=== PATIENT | female | born 1990 | race Caucasian/White ===

== ENCOUNTER 2019-10-11 03:07 | Emergency (ER) | payer OTHER, SELFPAY ==
[2019-10-11 03:12] VITALS: BP 136/87; PULSE 105; RESP 20; TEMP 36.7; O2SAT 100
--- NOTE | 2019-10-11 04:00 | ED.FEMALEGU ---
HPI - Female Genitourinary General Chief complaint: FIELD REPORTER Stated complaint: + PREG TEST Time Seen by Provider: 10/11/19 03:39 Source: patient Mode of arrival: ambulatory Limitations: no limitations History of Present Illness HPI Narrative: Patient is a 29-year-old female who presents to the emergency department with complaint of lower abdominal pain that she describes as cramping and vaginal spotting. Patient reports suspected symptoms of including nausea, fatigue, and food cravings. Patient states she had a home test that was positive a couple of days ago. Patient had a tubal ligation a few years ago. Patient has not seen an UNISHEAR OPERATOR. MD elicited complaint: vaginal bleeding, pelvic pain and suspected Pertinent past history: tubal ligation Onset (ago): day(s) Location of symptoms: suprapubic and LLQ Quality of pain: cramping Vaginal bleeding: scant (spotting) Associated symptoms: nausea Possible : at home test positive Date of Last Menstrual Period: 09/04/19 Related Data : 2 Para: 2 Home Medications Medication Instructions Recorded Confirmed No Home Medications 10/11/19 10/11/19 Allergies Allergy/AdvReac Type Severity Reaction Status Date / Time nitrofurantoin Allergy Hives Verified 10/11/19 04:45 [From [employer]robid] Review of Systems Review of Systems: All systems reviewed & are unremarkable except as noted in HPI and below PMFSH Past Medical History Medical History (Updated 10/11/19 @ 05:13 by Arleen Ramsey MD) No significant past medical history Surgical History Surgical History (Updated 10/11/19 @ 04:03 by Arleen Ramsey MD) History of section History of tonsillectomy and adenoidectomy History of tubal ligation Social History Social History (Updated 10/11/19 @ 04:05 by Arleen Ramsey MD) Smoking status: Current every day smoker Exam Const: General: cooperative, no acute distress and alert Nutritional Appearance: well nourished Orientation/consciousness: patient oriented x3 Limitations: no limitations HENMT: Mouth: Yes lip normal and Yes moist mucous membranes Resp: Effort & Inspection: normal respiratory effort Auscultation: clear to auscultation bilaterally Cardio: Rate: regular rate Rhythm: regular rhythm GI: GI Palp: Yes Soft to palpation and Yes Tenderness to palpation present (GI) (Mild suprapubic and left lower quadrant) Auscultation: normal bowel sounds Skin: General skin exam: normal color Neuro: General: patient oriented x3 Cognition (Neuro): normal cognition Speech: normal speech Extrem: General: normal to inspection, full ROM and no clubbing, cyanosis or edema Psych: Mental Status: mental status grossly normal Affect: normal affect Attitude: cooperative Course Course Emergency Course: test both urine and blood negative in the emergency department. Advised UNISHEAR OPERATOR follow-up for further care and to return to the ED if needed for worsening symptoms or problems. Vital Signs Vital signs: Vital Signs Temperature 98.0 F 10/11/19 03:12 Pulse Rate 105 H 10/11/19 03:12 Respiratory Rate 20 10/11/19 03:12 Blood Pressure 136/87 10/11/19 03:12 Pulse Oximetry 100 10/11/19 03:12 Temperature 98.0 F 10/11/19 03:12 Pulse Rate 78 10/11/19 04:46 Respiratory Rate 14 10/11/19 04:46 Blood Pressure 119/77 10/11/19 04:46 Pulse Oximetry 100 10/11/19 04:46 MDM - Female Genitourinary Medical Records Attestation: I reviewed the patient's medical records. Medical records narrative: Blood type a positive Lab Data Attestation: I reviewed the patient's lab results. Result diagrams: 10/11/19 04:17 10/11/19 04:17 Labs: Lab Results 10/11/19 10/11/19 10/11/19 Range/Units 04:17 04:17 04:17 WBC 6.9 (4.5-10.0) K/mm3 RBC 4.25 (4.2-5.4) M/mm3 Hgb 13.5 (12.0-15.0) g/dL Hct 40.0 (37.0-47.0) % MCV 94.1 (80-100) fl
[2019-10-11 04:26] VITALS: BP 117/70; BP 122/79; BP 128/78; PULSE 58; PULSE 62; PULSE 74
[2019-10-11 04:26] LABS: Basophils Absolute Auto 0.1 K/mm3 (0.0-0.1); Eosinophils Absolute Auto 0.1 K/mm3 (0-0.3); Eosinophils Percent Auto 1.2 % (0-4.4); Hemoglobin 13.5 g/dL (12.0-15.0); Immature Granulocyte Absolute 0.02 K/mm3 (0.00-0.031); Immature Granulocyte Percent A 0.3 % (0-0.5); Lymphocytes Absolute Auto 2.15 K/mm3 (0.9-3.2); Lymphocytes Percent Auto 31.3 % (18.3-44.2); Mean Corpuscular HGB Conc 33.8 g/dl (32-36); Mean Corpuscular Hemoglobin 31.8 pg (26-34); Mean Corpuscular Volume 94.1 fl (80-100); Mean Platelet Volume 9.8 fl (7.4-10.4); Monocytes Absolute Auto 0.7 K/mm3 (0.1-0.6); Monocytes Percent Auto 10.2 % (2.6-8.5); Neutrophils Absolute Auto 3.9 K/mm3 (1.3-6.7); Platelet Count Result 328 k/mm3 (150-375); Red Blood Count 4.25 M/mm3 (4.2-5.4); Red Cell Distribution Width 13.1 % (11.5-14.5); White Blood Count 6.9 K/mm3 (4.5-10.0)
[2019-10-11 04:33] LABS: Add Urine Microscopic? YES; Appearance Urine Clear (Clear); Bacteria Urine Trace /hpf; Bilirubin Urine Negative (Negative); Blood Urine 2+ (Negative); Color Urine Straw (Yellow); Glucose Urine UA Negative (Negative); Ketones Urine Negative (Negative); Leukocyte Esterase Ur Negative LEU/UL (Negative); Nitrate Urine Negative (Negative); Protein Urine Negative (Negative); Specific Grav Ur 1.011 (1.001-1.035); Squamous Epithelial Cell Urine Few /hpf (Few); Urobilinogen Urine Negative mg/dL (<2.0); WBC Urine 0-3 /hpf
[2019-10-11] MEDS: LACTATED RINGERS 1,000 ML 999 ML IV CONT (04:35)
[2019-10-11 04:37] LABS: Alanine Aminotransferase 17 U/L (4-35); Albumin Level 4.1 g/dL (3.5-5.1); Alkaline Phosphatase 64 U/L (38-126); Aspartate Amino Transferase 19 U/L (14-36); Bilirubin,Total 0.3 mg/dL (0.2-1.3); Blood Urea Nitrogen 9 mg/dL (7-17); Calcium 9.1 mg/dL (8.4-10.2); Carbon Dioxide 24 mmol/L (22-30); Chloride 109 mmol/L (98-107); Estimated Glomerular Filt Rate > 60; Glucose 96 mg/dL (65-105); Potassium 3.7 mmol/L (3.4-5.0); Sodium 139 mmol/L (137-145)
[2019-10-11 04:46] VITALS: BP 119/77; PULSE 78; RESP 14; O2SAT 100
[2019-10-11 04:57] LABS: Beta HCG Quantitative < 2.39 mIU/ML
[2019-10-11 05:01] VITALS: TEMP 36.7
[2019-10-11 05:28] VITALS: BP 124/75; PULSE 68; RESP 11; TEMP 36.5; O2SAT 100
== END 2019-10-11 05:31 | disposition home or self-care (01) ==
PROVIDERS: Emergency Provider Emergency Medicine; PCP Family Medicine
DX: R10.2 Pelvic and perineal pain (principal); F17.200 Nicotine dependence, unspecified, uncomplicated
CPT/HCPCS: 36415; 80053; 81001; 81025; 84702; 85025; 96361; 96374; 99284; J0131; J7120

== ENCOUNTER 2021-01-13 10:04 | Emergency (ER) | payer OTHER, SELFPAY ==
[2021-01-13 10:17] VITALS: BP 104/68; PULSE 110; RESP 16; TEMP 36.4; O2SAT 99
--- NOTE | 2021-01-13 10:19 | ED.GENADULT ---
HPI - General Adult General Chief complaint: Urogenital-Female Stated complaint: uti Source: patient Mode of arrival: ambulatory Limitations: no limitations History of Present Illness HPI narrative: Pleasant 30 y/o female. PMHx Non-contributory. Presents to [facility] today with acute complaints of urinary frequency, dysuria, and pressure for the past 72 hours. No fever, chills. No abdominal pain, flank pain, pelvic pain, N/V, vaginal discharge. No hematuria. She tells me her manifestations are very similar to UTI historically. She is w/o additional acute c/o illness upon exam. Related Data Home Medications Medication Instructions Recorded Confirmed tamsulosin 0.4 mg PO DAILY 01/13/21 01/13/21 Allergies Allergy/AdvReac Type Severity Reaction Status Date / Time nitrofurantoin Allergy Hives Verified 01/13/21 10:09 [From [employer]] Review of Systems Review of Systems: CONSTITUTIONAL: Denies fever, chills, sweats. EYES: Denies visual changes, redness, discharge. ENT: Denies rhinorrhea, congestion, sore throat, otalgia. CARDIOVASCULAR: Denies chest pain, palpitations, edema. RESPIRATORY: Denies dyspnea, wheezing, cough GASTROINTESTINAL: Denies abdominal pain, nausea, vomiting, diarrhea. GENITOURINARY: Positive dysuria, urinary frequency. No hematuria, abnormal discharge SKIN: Denies rash or itching. MUSCULOSKELETAL: Denies acute back pain, joint pain, or myalgia. NEUROLOGIC: Denies numbness, or focal weakness. PSYCHIATRIC: Denies anxiety or depression. All systems reviewed & are unremarkable except as noted in HPI and below PMFSH Past Medical History Medical History No significant past medical history Surgical History Surgical History History of section History of tonsillectomy and adenoidectomy History of tubal ligation Social History Social History Smoking status: Current every day smoker Exam Narrative: GENERAL: This is a well-nourished, well-developed adult, in no apparent distress. HEAD: normocephalic, atraumatic. EYES: PERRL. Sclera clear/white. EARS: External ears normal, auditory canals clear and without drainage, TMs normal. NOSE: External nose normal. Positive Rhinorrhea, no obstruction, nares patent. THROAT: Mucous membranes moist, posterior pharynx clear. No exudates. NECK: Neck supple, non-tender without lymphadenopathy, masses or thyromegaly. CARDIOVASCULAR: Regular rate and rhythm without murmurs, gallops, or rubs. RESPIRATORY: Clear to auscultation. Breath sounds equal bilaterally. No wheezes, rales, or rhonchi. GASTROINTESTINAL: Abdomen soft, non-tender, nondistended. Bowel sounds are active. No guarding. No CVA tenderness. SKIN: warm, intact with no suspicious lesions or rash, good texture and turgor. NEURO: No focal neurologic deficits. EXTREMITIES: Negative. Course Course Emergency Course: -30 y/o [place] female. -PMHx non-contributory. -Urinary frequency, dysuiria. -No systemic signs. -Proceed with Urine Dipstick. -No concern. Vital Signs Vital signs: Vital Signs Temperature 36.4 C 01/13/21 10:17 Pulse Rate 110 H 01/13/21 10:17 Respiratory Rate 16 01/13/21 10:17 Blood Pressure 104/68 01/13/21 10:17 Pulse Oximetry 99 01/13/21 10:17 Temperature 36.4 C 01/13/21 10:17 Pulse Rate 110 H 01/13/21 10:17 Respiratory Rate 16 01/13/21 10:17 Blood Pressure 104/68 01/13/21 10:17 Pulse Oximetry 99 01/13/21 10:17 Medical Decision Making [facility] Narrative Medical decision making narrative: -Urine Dipstick positive Leukocytes 1 +, negative nitrites. Cloudy w/normal PH. -Allergy to Macrobid, start Bactrim DS PO BID X 10 days for bactericidal properties, client has taken this medication historically and without allergy issues per report.
== END 2021-01-13 10:58 | disposition home or self-care (01) ==
PROVIDERS: Emergency Provider Nurse Practitioner Adult Health; PCP Family Medicine
DX: N39.0 Urinary tract infection, site not specified (principal); F17.200 Nicotine dependence, unspecified, uncomplicated
CPT/HCPCS: 81003; 87086; 87088; 99213; G0463